=== PATIENT | female | born 1980 | race Two or more races ===

== ENCOUNTER 2019-07-09 09:13 | Emergency (ER) | payer SELFPAY ==
[~2019-07-09] VITALS: Ht 157.5 cm; Wt 58.5 kg
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
--- NOTE | 2019-07-09 09:22 | NUR ---
DR VINCENT AT BEDSIDE
[2019-07-09] MEDS ORDERED: ACETAMINOPHEN ES 500 MG TABLET ONE (09:43)
[2019-07-09] MEDS ORDERED: IBUPROFEN 600 MG TABLET PO ONE (09:43)
[2019-07-09] MEDS: IBUPROFEN 600 MG TABLET PO ONE (09:45)
[2019-07-09] MEDS: ACETAMINOPHEN ES 500 MG TABLET PO ONE (09:45)
--- NOTE | 2019-07-09 12:00 | NUR ---
Patient discharged to home in stable condition. Written and verbal after care instructions given. Patient verbalizes understanding of instruction.
[2019-07-09 12:01] VITALS: BP 103/63
== END 2019-07-09 12:02 | disposition home or self-care (01) ==
LOC: ER 09:15
DX: S29.012A Strain of muscle and tendon of back wall of thorax, initial encounter (principal); S20.211A Contusion of right front wall of thorax, initial encounter; V49.59XA Passenger injured in collision with other motor vehicles in traffic accident, initial encounter; Y93.89 Activity, other specified; Y92.488 Other paved roadways as the place of occurrence of the external cause; Y99.8 Other external cause status
CPT/HCPCS: 71045-TC; 72125-TC; 72128-TC; 84703-TC